=== PATIENT | female | born 1970 | race Caucasian/White ===

== ENCOUNTER 2018-08-10 20:45 | Emergency (ER) | payer OTHER ==
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
[2018-08-10 21:36] VITALS: BP 151/79; PULSE 68; TEMP 97.7; BMI 40.2
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
== END 2018-08-10 23:03 | disposition home or self-care (01) ==
LOC: JERFT 20:45
DX: S80.11XA Contusion of right lower leg, initial encounter (principal); V49.59XA Passenger injured in collision with other motor vehicles in traffic accident, initial encounter; Y92.414 Local residential or business street as the place of occurrence of the external cause; Y93.89 Activity, other specified; Y99.8 Other external cause status
CPT/HCPCS: 73590-TC-RT-FY; 99281-25